=== PATIENT | female | born 1985 | race Caucasian/White ===

== ENCOUNTER → 2023-11-24 14:16 | Outpatient (REF) | payer OTHER, SELFPAY | LOC: RAD 14:16 | PROVIDERS: ATTENDING PHYSICIAN Family Medicine | DX: M79.671 Pain in right foot (principal); M79.672 Pain in left foot | CPT/HCPCS: 73630 ==

== ENCOUNTER 2024-03-31 13:33 | Emergency (ER) | payer OTHER, SELFPAY ==
[2024-03-31 13:37] VITALS: BP 156/100
[2024-03-31 14:23] VITALS: BP 141/109
--- NOTE | 2024-03-31 14:56 | ED.GENMED ---
History of Present Illness
General
Chief Complaint: Facial Problem
Source: patient
Exam Limitations: none
Time Seen by Provider: 03/31/24 14:47
Nursing documentation reviewed up to this point in time: agreed with
History of Present Illness
History of Present Illness:
38-year-old female with no significant past medical history presents stating her left outer ear with increasing swelling and becoming red and mildly itchy over past 3 days. Denies fever/chills, sore throat, headache, feels well otherwise
Past History
Past History
ED Past Medical History: None
ED Past Surgical History: Other (myringotomy)
Social History
Tobacco: Non-smoker
Alcohol: Occasional
Personal: Single
Living: with family
Employment: Employed (as a cook)
Review of Systems
Review of Systems
Allergies reviewed?: Yes
All Other Systems: ROS reviewed and negative except as documented in HPI and ROS
Constitutional: Denies fever or chills
EENT: Reports other (swelling, redness L outer ear); Denies sore throat
ABD/GI: Denies nausea
Skin: Reports itching (redness, swelling L outer ear)
Neurological: Denies headache
Phy Exam
General Physical Exam
General Presentation: well appearing and no apparent distress
General Skin: warm and dry
General Habitus: normal
General Mental: alert
ENT Exam
ENT Exam: TM's normal (ear canal normal), pharynx normal, neck supple (no lymphadenopathy) and other (L outer ear erythematous, swollen, mildly pruritic w miniscule skin colored bubbles in some areas. No drainage)
Additional ENT: Neck supple, no lymphadenopathy
Cardiovascular Exam
Cardiovascular Exam: regular rate/rhythm
Heart Sounds: normal
Pulmonary Exam
Pulmonary Exam: lungs clear
Psychiatric Exam
Psychiatric Exam: normal mood/affect
Course
Vital Signs
Initial and Last Documented VS:
Initial Vital Signs
Temp Pulse Resp BP Pulse Ox
98.2 F 85 16 156/100 98
03/31/24 13:37 03/31/24 13:37 03/31/24 13:37 03/31/24 13:37 03/31/24 13:37
Last Documented Vital Signs
Temp Pulse Resp BP Pulse Ox
98.2 F 82 16 131/102 99
03/31/24 13:37 03/31/24 15:40 03/31/24 15:40 03/31/24 15:40 03/31/24 15:40
MDM/Problems Addressed
Differential Diagnosis Includes:
otitis externa/cellulitis outer ear, mastitis
MDM/Problems Addressed:
38-year-old female with no significant past medical history presents stating her left outer ear with increasing swelling and becoming red and mildly itchy over past 3 days. Denies fever/chills, sore throat, headache, feels well otherwise
outer ear swelling is mild to moderate, localized to external ear only, ear canal is wide open, normal canal and TM no sign of severe infection, no mastoiditis, no AOM, face, scalp neck unaffected
Rx for Clindamycin and Mupirocin sent to her pharmacy
*Critical Care Note
Total Time (30-74mins, 75-104mins- exclusive of procedures): Not Applicable
ED Attending Note
-
Portions of this chart may have been created with voice recognition software.� Occasional wrong word or��sound alike� substitutions may have occurred due to the inherent limitations of voice recognition software.
Discharge Plan
Departure
Patient Disposition: Home (Routine Discharge)
Date of Disposition: 03/31/24
Time of Disposition: 15:04
Patient with high blood pressure during this ER visit?: Yes
Condition: Good
Discharge Problem:
Infection of left external ear
Instructions: Cellulitis (Skin Infection), Adult (DC)
Prescriptions:
New
mupirocin 2 % ointment
1 applic topical BID Qty: 15 0RF
clindamycin HCl 300 mg capsule
300 mg PO QID Qty: 40 0RF
Referrals:
Star Noel MD [Family Provider] - Follow up in 1 week
Activity Restrictions/Additional Instructions:
I recommend removing the until the infection is gone.
I sent a prescription to your pharmacy for the antibiotic ointment Mupirocin (Bactroban) and for antibiotic Clindamycin to take 300 mg 4 times a day for 10 days.
Seek medical care IMMEDIATELY for worsening swelling, pain, fever, pain or redness spreads to face, scalp, nausea or feeling sicker in any way.
Interventions
Interventions:
*Risk Screen - Suicide Last Done: 03/31/24 15:40
*General Assessment Last Done: 03/31/24 15:40
*Neglect/Abuse Screening Last Done: 03/31/24 15:40
ED- Fall Risk Assessment Last Done: 03/31/24 15:41
*ED COVID-19 Vaccine History Last Done: 03/31/24 13:37
*Nursing Disposition Last Done: 03/31/24 15:41
ED- Neurological Assessment Last Done: 03/31/24 15:40
ED-Skin Assessment Last Done: 03/31/24 14:40
Discharge Date and Time
Discharge Date/Time: 03/31/24 15:41
Print Language: ARMENIAN
[2024-03-31 15:40] VITALS: BP 131/102
== END 2024-03-31 15:41 | disposition home or self-care (01) ==
LOC: EMR 13:33
PROVIDERS: EMERGENCY PHYSICIAN Emergency Medicine; FAMILY PHYSICIAN Family Medicine
DX: H60.392 Other infective otitis externa, left ear (principal)
CPT/HCPCS: 99282